=== PATIENT | male | born 1980 | race Caucasian/White ===

== ENCOUNTER 2019-01-13 00:06 | Emergency (ER) | payer OTHER ==
[~2019-01-13] VITALS: Ht 180.3 cm; Wt 74.8 kg
[2019-01-13 00:15] VITALS: BP_SYST 137
--- NOTE | 2019-01-13 00:15 | NUR ---
Patient to ER bed 8 to gown for evaluation. Side rails up. Report given to BERTRAND NEAL.
--- NOTE | 2019-01-13 00:44 | NUR ---
ER at bedside examining patient.
--- NOTE | 2019-01-13 00:55 | NUR ---
Dr. Webb at bedside attempting to reduce left shoulder.
[2019-01-13] MEDS ORDERED: MORPHINE 4 MG/ML INJ. SYRINGE IVP ONE (01:00)
--- NOTE | 2019-01-13 01:02 | NUR ---
Unsuccessful reduction attempt to left shoulder per Dr. Webb. Moderate sedation procedure protocol to be initiated.
--- NOTE | 2019-01-13 01:10 | NUR ---
Time out performed. Procedure to be performed is reduction of left shoulder. Dr. Webb, myself, Candice Castellon, RN, RT, Ceramics Instructor at bedside. 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
--- NOTE | 2019-01-13 01:12 | NUR ---
Please see Moderate Sedation Record for ongoing assessments.
[2019-01-13] MEDS ORDERED: PROPOFOL 200MG/ 20ML VIAL (DIPRIVAN) IV ONE ×2 (01:15→01:30)
--- NOTE | 2019-01-13 02:00 | NUR ---
Successful reduction of Left shoulder as confirmed per X-ray, sling in place, pt tolerated fair. Pt states that he feels much better. Pt maintained GCS=15 and AAOx4 and VSS remained stable throughout procedure.
[2019-01-13 02:20] VITALS: BP_SYST 124
--- NOTE | 2019-01-13 02:20 | NUR ---
Patient given written and verbal discharge instructions and verbalizes understanding. ER MD discussed with patient the results and treatment provided. Patient in stable condition. ID arm band removed. IV catheter removed intact and dressing applied, no active bleeding. Rx of [place] and Motrin given. Patient educated on pain management and to follow up with PMD. Pain Scale 6/10, sent home with pain medications. Opportunity for questions provided and answered. Medication side effect fact sheet provided. 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
== END 2019-01-13 02:20 | disposition home or self-care (01) ==
LOC: SED 00:06
DX: S43.005A Unspecified dislocation of left shoulder joint, initial encounter (principal); X58.XXXA Exposure to other specified factors, initial encounter; Y93.89 Activity, other specified; Y92.89 Other specified places as the place of occurrence of the external cause; Y99.8 Other external cause status
CPT/HCPCS: 23650; 73020; 73030; 96374; 99285; J2270; J2704

== ENCOUNTER 2023-09-26 12:44 | Emergency (ER) | payer OTHER ==
[~2023-09-26] VITALS: Ht 180.3 cm; Wt 83.9 kg
[2023-09-26 12:48] VITALS: BP_SYST 128; PULSE 79; RESP 18; TEMP 97; O2SAT 97
[2023-09-26] MEDS: fentaNYL CITRATE/PF 100 MCG/2 ML AMP IM ONE (13:28)
[2023-09-26 15:03] VITALS: BP_SYST 122; PULSE 80; RESP 20; TEMP 97.5; O2SAT 99
== END 2023-09-26 15:05 | disposition home or self-care (01) ==
LOC: SED 12:44
DX: S43.085A Other dislocation of left shoulder joint, initial encounter (principal); X58.XXXA Exposure to other specified factors, initial encounter; Y93.89 Activity, other specified; Y92.89 Other specified places as the place of occurrence of the external cause; Y99.8 Other external cause status
CPT/HCPCS: 99284; 23650; 73030; J3010